=== PATIENT | male | born 1965 | race Caucasian/White ===

== ENCOUNTER 2021-01-10 23:47 | Emergency (ER) | payer OTHER ==
[2021-01-11 00:16] LABS: BASOPHIL 0.6 % (0-2); EOSINOPHIL 1.5 % (0-5); HCT 47.6 % (42.0-52.0); HGB 16.7 g/dl (13.2-18.0); MCH 33.9 pg (25.0-31.0); MCHC 35.1 g/dL (32.0-36.0); MCV 96.7 fL (78.0-100.0); MONOCYTE 8.4 % (0-12); MPV 8.6 fL (6.0-9.5); NEUTROPHIL 70.1 % (41-80); NRBC 0; PLT 127 K/uL (150-400); RBC 4.92 M/uL (4.70-6.00); RDW 12.8 % (11.5-14.0); WBC 6.8 K/uL (4.0-10.5)
[2021-01-11 00:35] LABS: BILIRUBIN NEGATIVE (NEGATIVE); BLOOD NEGATIVE Ery/uL (NEGATIVE); CLARITY CLEAR (CLEAR); COLOR YELLOW (YELLOW); GLUCOSE (U) NORMAL (NORMAL); LEUKOCYTES NEGATIVE Leu/uL (NEGATIVE); NITRITE NEGATIVE (NEGATIVE); PROTEIN NEGATIVE (NEGATIVE); SPECIFIC GRAVITY >=1.030 (1.001-1.030); UROBILINOGEN 0.2 mg/dL (0.2-1.0)
[2021-01-11 00:37] LABS: PRO-BNP 19 pg/mL (<125)
[2021-01-11 00:38] LABS: ALBUMIN 4.3 g/dL (3.4-5.0); BILIRUBIN - TOTAL 0.4 mg/dL (0.2-1.0); BUN/CREAT RATIO (CALC) 16.1 RATIO; CREATININE 0.93 mg/dL (0.67-1.17); FT4 (FREE T4) 0.6 ng/dL (0.76-1.46); GLOBULIN (CALCULATION) 2.7 g/dL; POTASSIUM 3.7 mmol/L (3.5-5.1)
[2021-01-11] MEDS ORDERED: ATARAX25 MG PO (03:51)
== END 2021-01-11 03:58 | disposition home or self-care (01) ==
LOC: FER 23:47
PROVIDERS: Emergency Medicine Emergency Medical Services
DX: R07.89 Other chest pain (principal); R61 Generalized hyperhidrosis
CPT/HCPCS: 36415; 71045; 80053; 81003; 83880; 84145; 84439; 84443; 84484; 85025; 93005; J2405; J7030

== ENCOUNTER → 2021-10-27 | Day surgery (SDC) | payer OTHER ==
[~2021-10-27] VITALS: Ht 185.4 cm; Wt 95.2 kg
[~2021-10-27] MED LIST: ATARAX25 MG PO; BUSPIRONE HCL10 MG PO; NORCO 5/3251 EACH PO; PRINIVIL20 MG PO; SYNTHROID125 MCG PO; TRAMADOL HCL50 MG PO
[2021-10-27 11:04] LABS: HCT 45.6 % (42.0-52.0); HGB 15.9 g/dl (13.2-18.0); MCH 34.1 pg (25.0-31.0); MCHC 34.9 g/dL (32.0-36.0); MCV 97.9 fL (78.0-100.0); MPV 8.5 fL (6.0-9.5); RBC 4.66 M/uL (4.70-6.00); RDW 12.8 % (11.5-14.0); WBC 6.9 K/uL (4.0-10.5)
[2021-10-27 11:51] LABS: BUN/CREAT RATIO (CALC) 16.9 RATIO; CREATININE 0.89 mg/dL (0.67-1.17); POTASSIUM 4.4 mmol/L (3.5-5.1)
== END | disposition home or self-care (01) ==
LOC: FAS 09:11
PROVIDERS: Anesthesiology; Legal Medicine
DX: M75.101 Unspecified rotator cuff tear or rupture of right shoulder, not specified as traumatic (principal); M19.011 Primary osteoarthritis, right shoulder; M75.41 Impingement syndrome of right shoulder
CPT/HCPCS: 36415; 80048; C1713; J0171; J0690; J1100; J1885; J2001; J2250; J2405; J2704; J2795; J7120